=== PATIENT | female | born 1940 | race Caucasian/White ===

== ENCOUNTER 2017-12-30 21:02 | Outpatient (CLI) | payer MEDICARE, OTHER ==
[~2017-12-30 21:02] MED LIST: DIPH50CA PO; LORA10CA PO; LVT.025T PO
== END 2017-12-31 05:47 | disposition home or self-care (01) ==
LOC: SLEEP 21:02
PROVIDERS: ATTEND Otolaryngology Otolaryngology/Facial Plastic Surgery
DX: G47.33 Obstructive sleep apnea (adult) (pediatric) (principal); R06.83 Snoring; G47.10 Hypersomnia, unspecified
CPT/HCPCS: 95810

== ENCOUNTER 2019-06-29 19:25 | Outpatient (CLI) | payer MEDICARE, OTHER | END 2019-06-30 06:14 | disposition home or self-care (01) | LOC: SLEEP 19:25 | PROVIDERS: ATTEND Family Medicine | DX: G47.33 Obstructive sleep apnea (adult) (pediatric) (principal) | CPT/HCPCS: 95811 ==

== ENCOUNTER → 2019-12-06 | Outpatient (CLI) | payer MEDICARE ==
[~2019-12-06] VITALS: Ht 149.9 cm; Wt 81.8 kg
[~2019-12-06] MED LIST changes: +LIDOCAINE 1% INJ 20 ML 20 ML VIAL INJ ONE
--- NOTE | 2019-12-06 18:26 | Diagnostic Imaging Report ---
INDICATION: Enlarged left axillary lymph node. EXAM: The patient presents for ultrasound-guided biopsy. The patient was brought to the procedure room, placed on table in the supine position. Ultrasound imaging of the left axilla was performed to evaluate appropriate entry site. A total of 3 passes were made into a fairly fatty lesion in the left axilla utilizing 14-gauge Achieve needle. A marker clip was then deployed. Hemostasis was obtained using manual compression. The patient tolerated the procedure well left the department in stable condition. IMPRESSION: Ultrasound-guided core biopsy of a fatty left axillary lesion. Pathology results are currently pending. Dictated by: Dictated on workstation # [id number]
== END ==
LOC: RAD 13:26
PROVIDERS: ATTEND Family Medicine
DX: N63.32 Unspecified lump in axillary tail of the left breast (principal); Z90.10 Acquired absence of unspecified breast and nipple
CPT/HCPCS: 19083; 88305; 88341; 88342

== ENCOUNTER → 2020-02-08 | Outpatient (CLI) | payer MEDICARE ==
[~2020-02-08] MED LIST changes: -LIDOCAINE 1% INJ 20 ML 20 ML VIAL INJ ONE
--- NOTE | 2020-02-08 14:53 | Diagnostic Imaging Report ---
EXAM: PET/CT INDICATION: Breast cancer TECHNIQUE: PET/CT imaging was obtained from the base of the skull through the pelvis after the administration of 15.02 mCi of F-18 fluorodeoxyglucose injected into the right forearm. Limited CT imaging was utilized for localization and attenuation correction purposes. The low energy CT utilized for attenuation correction is not considered to be of high enough spatial resolution to allow in and of itself a separate anatomical analysis. Height 5' 0" Weight 175 Blood glucose 100 COMPARISON: There are no prior PET/CT examinations available for comparison. This study is less than optimal as a band of the mid abdomen is obscured by artifact. Reportedly, the patient could not hold her arms above her torso. Consequently, the accumulated radiotracer in the injection site at the right forearm did produce artifact that obscured the mid abdomen. Repeat images were obtained. The repeat images showed no hypermetabolic activity to suggest malignancy. The CT images were also unremarkable for a mass in this area. By history, the patient has a diagnosis of carcinoma of the left breast and she did undergo a mastectomy in 2012. The patient also underwent an ultrasound-guided biopsy of a lymph node in the left axilla on 12/06/2019. The results of the biopsy are not known to me. The patient also underwent an ultrasound exam of the left axilla on 01/28/2020. These lymph nodes appear to have increased in size since the prior exam of 11/30. On this exam, there does not appear to be any enlarged adenopathy in the left axilla and there is no hypermetabolic uptake in this area to suggest neoplastic disease. There is no hypermetabolic activity in the right axilla. The CT images do suggest that the patient has undergone a bilateral mastectomy. There is no focal hypermetabolic mass to suggest malignant disease. The thyroid gland is prominent and has increased hypermetabolic activity with SUV values ranging in the 5-6 range. This appearance is nonspecific however. Correlation with the patient's thyroid laboratory values would be recommended, particularly if there is clinical concern regarding Graves' disease. A thyroid ultrasound exam should also be considered for further study. The CT images failed to show any sign of an acute abnormality. There is a 2.8 cm dense nodule along the periphery of the right kidney. This is not hypermetabolic and is probably related to a cyst. Even so, I would recommend that ultrasound be performed for further study. There is diverticulosis of the sigmoid colon without evidence for acute diverticulitis. The uterus is surgically absent as is the gallbladder. IMPRESSION: 1. There is no hypermetabolic activity to suggest malignancy involving the left axilla. There is no focal hypermetabolic mass identified otherwise. 2. The generalized increased activity within the thyroid gland and the increased size of the thyroid gland is of uncertain etiology. This could be secondary to Graves' disease disease. Recommendations as above. 3. Ultrasound would be recommended to better characterize the 2.8 cm rounded soft tissue density along the lateral aspect of the right kidney. 4. These results were discussed with Dr. Escalera. Dictated by: Dictated on workstation # [id number]
== END ==
LOC: RAD 10:05
PROVIDERS: ATTEND Surgery
DX: C50.912 Malignant neoplasm of unspecified site of left female breast (principal); R59.0 Localized enlarged lymph nodes
CPT/HCPCS: 78815; A9552

== ENCOUNTER → 2021-06-29 | Outpatient (CLI) | payer MEDICARE, OTHER ==
--- NOTE | 2021-06-29 11:09 | Diagnostic Imaging Report ---
INDICATION: Dysphagia. TECHNIQUE: Procedure was performed in conjunction with Speech Pathology. Video fluoroscopy was performed during the swallowing of barium at multiple consistencies. 1.3 minutes of fluoroscopic time was utilized. FINDINGS: Patient ingested thin liquid with a teaspoon as well as through a straw. Patient also ingested applesauce and banana consistency. Patient ingested cracker consistency. There is a single episode of flash penetration during swallowing of thin barium with a teaspoon. The remainder of the swallows appeared normal. No other episodes of laryngeal penetration were observed. There is no aspiration. There is normal epiglottic tilt and laryngeal elevation. IMPRESSION: Essentially unremarkable modified barium swallow study apart from a single episode of flash penetration during swallowing of thin barium with a teaspoon. Dictated by: Dictated on workstation # [id number]
== END ==
LOC: RAD 10:00
DX: R13.10 Dysphagia, unspecified (principal)
CPT/HCPCS: 74230

== ENCOUNTER 2021-10-14 16:14 | Observation (INO) | payer MEDICARE, OTHER ==
[~2021-10-14] VITALS: Ht 152 cm; Wt 87.0 kg
--- NOTE | 2021-10-14 16:38 | ED Neurological Problem ---
General Chief Complaint: General Problems/Pain Stated Complaint: BP ISSUES Nursing Triage Note: PT TO ED [facility] W/ C/O LOW BLOOD PRESSURE THAT "SHOT UP" AND EPISODE OF "GLASSY EYES". DAUGHTER REPORTS PT WAS "UNRESPONSIVE" AT THAT TIME. PT STATES SHE DOESN'T REMEMBER ANY OF IT AND THINKS "THEY MADE IT UP." PT ANGRY AT THIS TIME ET DOES NOT WANT TO BE HERE AT THIS TIME. Source: patient, family, RN notes reviewed Exam Limitations: no limitations (WILLIAM HAYES) History of Present Illness Date Seen by Provider: Oct 14, 2021 Time Seen by Provider: 16:33 Initial Comments This is an 81-year-old female that presents to the emergency room from the [facility] for possible TIA. Per report the patient was talking and then had a moment of "going glassy eyed" and possibly having some right-sided facial droop. They sat the patient down and states that her blood pressure was "very low" and her pulse went into the 120s. This lasted for several minutes and seemingly resolved. The patient tells me that she does not believe that any of this happened and that she has a slight headache which she rates as a 7 out of 10. She does not have a history of CVA, PR or other cardiovascular events. She is not currently on a blood thinner. Severity: mild (WILLIAM HAYES) Allergies and Home Medications Allergies Coded Allergies: Cephalexin Monohydrate (Verified Allergy, Mild, 10/15/11) Methylene Blue (Verified Allergy, Mild, 10/15/11) Nitrofurantoin Macrocrystal (Verified Allergy, Mild, 10/15/11) Spectinomycin HCl (Verified Allergy, Mild, 10/15/11) amiloride HCl (Verified Allergy, Mild, 10/15/11) amoxicillin trihydrate (Verified Allergy, Mild, 10/15/11) ampicillin (Verified Allergy, Mild, 10/15/11) atropine (Verified Allergy, Mild, 10/15/11) atropine sulfate (Verified Allergy, Mild, 10/15/11) benzoic acid (Verified Allergy, Mild, 10/15/11) betamethasone dipropionate (Verified Allergy, Mild, 10/15/11) diazepam (Verified Allergy, Mild, 10/15/11) erythromycin base (Verified Allergy, Mild, 10/15/11) hydrochlorothiazide (Verified Allergy, Mild, 10/15/11) hyoscyamine (Verified Allergy, Mild, 10/15/11) hyoscyamine sulfate (Verified Allergy, Mild, 10/15/11) levofloxacin (Verified Allergy, Mild, 10/15/11) methenamine (Verified Allergy, Mild, 10/15/11) phenyl salicylate (Verified Allergy, Mild, 10/15/11) potassium clavulanate (Verified Allergy, Mild, 10/15/11) propylene glycol (Verified Allergy, Mild, 10/15/11) salicylates (Verified Allergy, Mild, 10/15/11) spectinomycin (Verified Allergy, Mild, 10/15/11) tetracycline (Verified Allergy, Mild, 10/15/11) caffeine (Unverified Allergy, Unknown, 04/26/10) Uncoded Allergies: CYCLSCAT VAG CREAM (Allergy, Mild, 10/15/11) FURAKIN (Allergy, Mild, 10/15/11) MYCSTATIX (Allergy, Mild, 10/15/11) ORTHO-DIENSATROL (Allergy, Mild, 10/15/11) PROBICIN (Allergy, Mild, 10/15/11) PTOSTSTAT (Allergy, Mild, 10/15/11) TETRAKIN (Allergy, Mild, 10/15/11) VELOSEX (Allergy, Mild, 10/15/11) CHOCOLATE (Allergy, Unknown, 04/26/10) INK (Allergy, Unknown, 04/26/10) PENICILLIN (Allergy, Unknown, 04/26/10) SULFA (Allergy, Unknown, 04/26/10) Patient Home Medication List Home Medication List Reviewed: Yes (WILLIAM HAYES) Diphenhydramine Hcl (Benadryl) 50 Mg Capsule, 1 EACH PO Q 4 - 6 HRS PRN, (Reported) Entered as Reported by: SALVATORE LEMA on 10/15/11 0746 Levothyroxine Sodium (Synthroid) 25 Mcg Tablet, 1 EACH PO DAILY, (Reported) Entered as Reported by: SALVATORE LEMA on 10/15/11 0746 Loratadine (Claritin) 10 Mg Capsule, 10 MG PO DAILY, (Reported) Entered as Reported by: SALVATORE LEMA on 10/15/11 0747 Review of Systems Review of Systems Constitutional: no symptoms reported Eyes: No Symptoms Reported Ears, Nose, Mouth, Throat: no symptoms reported Respiratory: no symptoms reported Cardiovascular: no symptoms reported Gastrointestinal: no symptoms reported Genitourinary: no symptoms reported Musculoskeletal: no symptoms reported Skin: no symptoms reported Psychiatric/Neurological: Headache Endocrine: No Symptoms Reported Hematologic/Lymphatic: No Symptoms Reported (WILLIAM HAYES) Past Dfascip-Xsbigu-Oprvkn Hx Patient Social History Tobacco Use?: No Use of E-Cig and/or Vaping dev: No Substance use?: No Alcohol Use?: No Pt feels they are or have been: No (WILLIAM HAYES) Physical Exam Vital Signs Vital Signs - First Documented 10/14/21 16:15 Temp 36.1 Pulse 67 Resp 20 B/P (MAP) 164/86 (112) Pulse Ox 98 O2 Delivery Room Air (FATOUMATA BARTON MD) Vital Signs Capillary Refill : Less Than 3 Seconds (WILLIAM HAYES) Height, Weight, BMI Height: 5'1.00" Weight: 190lbs. oz. 86.794510jv; 37.00 BMI Method:Stated General Appearance: WD/WN, no apparent distress HEENT: PERRL/EOMI, normal ENT inspection, TMs normal, pharynx normal Neck: non-tender, full range of motion, supple Respiratory: chest non-tender, lungs clear, normal breath sounds Gastrointestinal: normal bowel sounds, non tender Back: no CVA tenderness Extremities: non-tender Neurologic/Psychiatric: appointment specialist II-XII nml as tested, no motor/sensory deficits, alert, normal mood/affect Crainal Nerves: normal hearing, normal speech Coordination/Gait: normal finger to nose Motor/Sensory: no motor deficit, no sensory deficit, no pronator drift Skin: normal color, warm/dry (WILLIAM HAYES) Progress/Results/Core Measures Results/Orders Lab Results Laboratory Tests Test 10/14/21 16:48 10/14/21 17:04 Range/Units Urine Color YELLOW Urine Clarity CLEAR Urine pH 6.0 5-9 Urine Specific [place] 1.015 L 1.016-1.022 Urine Protein NEGATIVE NEGATIVE Urine Glucose (UA) NEGATIVE NEGATIVE Urine Ketones NEGATIVE NEGATIVE Urine Nitrite NEGATIVE NEGATIVE Urine Bilirubin NEGATIVE NEGATIVE Urine Urobilinogen 0.2 < = 1.0 MG/DL Urine Leukocyte Esterase 1+ H NEGATIVE Urine RBC (Auto) NEGATIVE NEGATIVE Urine RBC NONE /HPF Urine WBC 5-10 H /HPF Urine Squamous Epithelial Cells 0-2 /HPF Urine Renal Epithelial Cells NONE /HPF Urine Crystals NONE /LPF Urine Bacteria FEW H /HPF Urine Casts NONE /LPF Urine Mucus NEGATIVE /LPF Urine Culture Indicated NO White Blood Count 8.9 4.3-11.0 10^3/uL Red Blood Count 4.52 3.80-5.11 10^6/uL Hemoglobin 13.0 11.5-16.0 g/dL Hematocrit 40 35-52 % Mean Corpuscular Volume 88 80-99 fL Mean Corpuscular Hemoglobin 29 25-34 pg Mean Corpuscular Hemoglobin Concent 33 32-36 g/dL Red Cell Distribution Width 14.1 10.0-14.5 % Platelet Count 195 130-400 10^3/uL Mean Platelet Volume 10.4 9.0-12.2 fL Immature Granulocyte % (Auto) 0 % Neutrophils (%) (Auto) 60 42-75 % Lymphocytes (%) (Auto) 27 12-44 % Monocytes (%) (Auto) 8 0-12 % Eosinophils (%) (Auto) 4 0-10 % Basophils (%) (Auto) 1 0-10 % Neutrophils # (Auto) 5.4 1.8-7.8 10^3/uL Lymphocytes # (Auto) 2.4 1.0-4.0 10^3/uL Monocytes # (Auto) 0.7 0.0-1.0 10^3/uL Eosinophils # (Auto) 0.3 0.0-0.3 10^3/uL Basophils # (Auto) 0.1 0.0-0.1 10^3/uL Immature Granulocyte # (Auto) 0.0 0.0-0.1 10^3/uL Prothrombin Time 13.3 12.2-14.7 SEC INR Comment 1.0 0.8-1.4 Sodium Level 141 135-145 MMOL/L Potassium Level 3.8 3.6-5.0 MMOL/L Chloride Level 106 98-107 MMOL/L Carbon Dioxide Level 25 21-32 MMOL/L Anion Gap 10 5-14 MMOL/L Blood Urea Nitrogen 12 7-18 MG/DL Creatinine 1.52 H 0.60-1.30 MG/DL Estimat Glomerular Filtration Rate 34 BUN/Creatinine Ratio 8 Glucose Level 108 H 70-105 MG/DL Calcium Level 9.4 8.5-10.1 MG/DL Corrected Calcium 9.6 8.5-10.1 MG/DL Total Bilirubin 0.7 0.1-1.0 MG/DL Aspartate Amino Transf (AST/SGOT) 15 5-34 U/L Alanine Aminotransferase (ALT/SGPT) 11 0-55 U/L Alkaline Phosphatase 68 40-136 U/L Troponin I < 0.028 <0.028 NG/ML Total Protein 7.3 6.4-8.2 GM/DL Albumin 3.8 3.2-4.5 GM/DL (FATOUMATA BARTON MD) Vital Signs/I&O 10/14/21 16:15 Temp 36.1 Pulse 67 Resp 20 B/P (MAP) 164/86 (112) Pulse Ox 98 O2 Delivery Room Air (FATOUMATA BARTON MD) Blood Pressure Mean: 112 Departure Communication (Admissions) Time/Spoke to Admitting Phy: 18:07 Dr. Lee accepts patient at this time. Patient to be admitted for an acute TIA. Patient will be treated for a UTI as well. Dr. Lee graciously accepts patient at this time. (WILLIAM HAYES) Impression Primary Impression: TIA (transient ischemic attack) Additional Impression: UTI (urinary tract infection) Disposition: ADMITTED INPATIENT Condition: Stable Admissions Decision to Admit Reason: Admit from ER (General) Decision to Admit/Date: Oct 14, 2021 Time/Decision to Admit Time: 18:07 (WILLIAM HAYES) Departure-Patient Inst. Referrals: ARTIE GARCIA MD (PCP/Family) Primary Care Physician ATTENDING PHYSICIAN NOTE: I was physically present as attending physician in the emergency department during the care of this patient. I discussed the general approach to work-up and appropriateness of admission with ANNETTA Hanson. I did not directly provide care to this patient or interview or examine this patient.. (FATOUMATA BARTON MD) WILLIAM HAYES Oct 14, 2021 16:38 FATOUMATA BARTON MD Oct 14, 2021 19:40
--- NOTE | 2021-10-14 16:54 | Diagnostic Imaging Report ---
INDICATION: Labile blood pressure, neurologic changes. FINDINGS: Lungs are clear. Heart and vessels radiographically appear normal. No failure, effusion or pneumothorax. IMPRESSION: Normal frontal chest x-ray. Dictated by: Dictated on workstation # [id number]
[2021-10-14 16:55] LABS: BILIRUBIN,URINE NEGATIVE (NEGATIVE); CLARITY,URINE CLEAR; COLOR,URINE YELLOW; GLUCOSE, URINE (UA) NEGATIVE (NEGATIVE); KETONES,URINE NEGATIVE (NEGATIVE); LEUKOCYTE ESTERASE ,URINE 1+ (NEGATIVE); NITRITE,URINE NEGATIVE (NEGATIVE); PROTEIN,URINE NEGATIVE (NEGATIVE)
[2021-10-14 17:01] LABS: BACTERIA,URINE FEW /HPF; SQUAMOUS EPITHELIAL CELL,UR 0-2 /HPF
--- NOTE | 2021-10-14 17:10 | Diagnostic Imaging Report ---
PROCEDURE: CT head without contrast. TECHNIQUE: Multiple contiguous axial images were obtained through the brain without the use of intravenous contrast. Auto Exposure Controls were utilized during the CT exam to meet ALARA standards for radiation dose reduction. INDICATION: Labile blood pressure with altered mental status. COMPARISON: None. FINDINGS: There is no intracranial hemorrhage. There is no focal or generalized cerebral edema. The basilar cisterns patent. There is no sulcal effacement. There is no finding suggestive of an elevation of the intracranial pressures. There is no hemorrhage and there is no abnormal extra-axial fluid collection. There is membrane thickening in the right maxillary sinus. The mastoid air cells clear. No acute calvarial or orbital pathology found. IMPRESSION: Some right maxillary sinus disease, however, normal appearance of the brain. No acute appearing intracerebral pathology. Dictated by: Dictated on workstation # [id number]
[2021-10-14 17:11] LABS: BASOPHILS # (AUTO) 0.1 10^3/uL (0.0-0.1); BASOPHILS % (AUTO) 1 % (0-10); EOSINOPHILS # (AUTO) 0.3 10^3/uL (0.0-0.3); EOSINOPHILS % (AUTO) 4 % (0-10); HEMATOCRIT 40 % (35-52); LYMPHOCYTES # (AUTO) 2.4 10^3/uL (1.0-4.0); LYMPHOCYTES % (AUTO) 27 % (12-44); MEAN CORPUSCULAR HEMOGLOBIN 29 pg (25-34); MEAN CORPUSCULAR HGB CONC 33 g/dL (32-36); MEAN CORPUSCULAR VOLUME 88 fL (80-99); MEAN PLATELET VOLUME 10.4 fL (9.0-12.2); MONOCYTES # (AUTO) 0.7 10^3/uL (0.0-1.0); MONOCYTES % (AUTO) 8 % (0-12); NEUTROPHILS # (AUTO) 5.4 10^3/uL (1.8-7.8); NEUTROPHILS % (AUTO) 60 % (42-75); PLATELET COUNT 195 10^3/uL (130-400); WHITE BLOOD COUNT 8.9 10^3/uL (4.3-11.0)
[2021-10-14 17:28] LABS: ALBUMIN 3.8 GM/DL (3.2-4.5); PROTHROMBIN TIME PATIENT 13.3 SEC (12.2-14.7)
[2021-10-14 17:29] LABS: CHLORIDE 106 MMOL/L (98-107); POTASSIUM 3.8 MMOL/L (3.6-5.0); SODIUM 141 MMOL/L (135-145)
[2021-10-14 17:30] LABS: CALCIUM 9.4 MG/DL (8.5-10.1)
[2021-10-14 17:31] LABS: GLUCOSE 108 MG/DL (70-105); TOTAL PROTEIN 7.3 GM/DL (6.4-8.2)
[2021-10-14 17:32] LABS: CARBON DIOXIDE 25 MMOL/L (21-32)
[2021-10-14 17:33] LABS: BILIRUBIN,TOTAL 0.7 MG/DL (0.1-1.0)
[2021-10-14 17:34] LABS: ALKALINE PHOSPHATASE 68 U/L (40-136)
[2021-10-14 17:35] LABS: CREATININE SERUM 1.52 MG/DL (0.60-1.30); GFR ESTIMATED 34
[2021-10-14 17:36] LABS: BUN/CREATININE RATIO 8
[2021-10-14 17:37] LABS: ALANINE AMINOTRANSFERASE 11 U/L (0-55)
[2021-10-14 18:35] VITALS: BP 151/79
[2021-10-14] MEDS ORDERED: ONDANSETRON 4 MG (ZOFRAN) ORAL DISSOLVE TAB PO PRN (18:45)
[2021-10-14] MEDS ORDERED: MELATONIN 3 MG TABLET PO PRN (18:45)
[2021-10-14] MEDS ORDERED: ACETAMINOPHEN 325 MG TABLET PO PRN (18:45)
[2021-10-14] MEDS ORDERED: polyethylene glycoL POWDER 17 GM (MIRALAX) PACK PO PRN (18:45)
[2021-10-14] MEDS ORDERED: ONDANSETRON 4 MG/2 ML (SDV) Z0FRAN IV PRN (18:45)
[2021-10-14] MEDS ORDERED: ANTACID SUSP 30 ML UDC (MYLANTA) PO PRN (18:45)
[2021-10-14] MEDS ORDERED: NALOXONE 0.4 MG/ML 1 ML (NARCAN) VIAL IV PRN (19:00)
[2021-10-14 20:00] VITALS: BP 154/68
[2021-10-14] MEDS ORDERED: ENOXAPARIN 40 MG/0.4 ML (LOVENOX) SYR SC SCH (21:00)
[2021-10-15] VITALS (7 sets, daily range): BP systolic 122–192; BP diastolic 69–104
[2021-10-15] MEDS ORDERED: LEVOTHYROXINE 25 MCG (LEVOTHROID) TAB PO SCH (06:30)
[2021-10-15] MEDS ORDERED: PANTOPRAZOLE 40 MG (PROTONIX) TAB PO SCH (07:00)
[2021-10-15] MEDS ORDERED: hydrALAZINE (APESOLINE) 20 MG/ML VIAL IV PRN (08:15)
[2021-10-15] MEDS ORDERED: ASPIRIN 81 MG CHEW (CHILDREN'S ASA) PO SCH (09:00)
--- NOTE | 2021-10-15 10:11 | Diagnostic Imaging Report ---
PROCEDURE: US carotid duplex, bilateral. TECHNIQUE: Multiple real-time grayscale images were obtained over the carotid arteries in various projections, bilaterally. Additional spectral analysis and color Doppler duplex images were also obtained. INDICATION: Transient ischemic attacks. There is mild plaque of the right carotid bifurcation. No significant velocity elevation is identified. No velocity elevation or stenosis is seen. Both vertebral arteries show antegrade flow. IMPRESSION: No evidence of a hemodynamically significant stenosis. Parameters based on the consensus panel Knox-Scale and Doppler ultrasound criteria published February 2003, Radiology, Volume 229. DOPPLER (peak systolic velocity M/S Right Left CCA .62 .85 ICA Proximal .42 .46 ICA Mid .56 .83 ICA Distal .64 .45 RATIO 1.02 .98 ECA 1.02 .79 VERT .52 .43 Dictated by: Dictated on workstation # [id number]
--- NOTE | 2021-10-15 11:02 | Occupational Therapy Eval ---
OT Evaluation-General/PLF Medical Diagnosis Admission Date Oct 14, 2021 at 18:05 Medical Diagnosis: TIA/UTI Onset Date: Oct 14, 2021 Therapy Diagnosis Therapy Diagnosis: reduced safety, endurance, adls Height/Weight Height (Feet): 5 Height (Inches): 1.00 Weight (Pounds): 190 Precautions Precautions/Isolations: Fall Prevention Referral Referral Reason: Evaluation/Treatment Medical History Current History Pt arrived to ER from long term with c/o low blood pressure and unresponsive episode earlier in the day. Pt denies all events leading up to hospitalization. CT of head reveals no acute findings. Pt to have MRI. Per patient, she lives in a long term and is independent with adls. Staff complete all IADLs. Pt uses a 3 wheeled walker at baseline and walks to/from dining area. Reviewed History: Yes Social History Home: Custodial Entry Into Home: Level Entry ADL-Prior Level of Function SCALE: Activities may be completed with or without assistive devices. 4-Oedlbiipbl-npwvsrf completes the activity by him/herself with no assistance from a helper. 5-Set-up or Clean-up Assistance-helper sets up or cleans up; patient completes activity. [place] assists only prior to or following the activity. 4-Supervision or Touching Assistance-helper provides verbal cues and/or touching/steadying and/or contact guard assistance as patient completes activity. Assistance may be provided throughout the activity or intermittently. 3-Partial/Moderate Assistance-helper does LESS THAN HALF the effort. [place] lifts, holds or supports trunk or limbs, but provides less than half the effort. 2-Substantial/Maximal Assistance-helper does MORE THAN HALF the effort. [place] lifts or holds trunk or limbs and provides more than half the effort. 1-Tcergbanc-ifpmqw does ALL the effort. Patient does none of the effort to complete the activity. Or, the assistance of 2 or more helpers is required for the patient to complete the activity. If activity was not attempted, code reason: 7-Patient Refused. 9-Not Applicable-not attempted and the patient did not perform the activity before the current illness, exacerbation or injury. 10-Not Attempted due to Environmental Limitations-(lack of equipment, weather restraints, etc.). 88-Not Attempted due to Medical Conditions or Safety Concerns. Self Care: Independent Functional Cognition: Unknown OT Current Status Subjective "therapy, why would I need therapy? I don't need any therapy." Appearance Pt left room in wheelchair for MRI. Mental Status/Objective Patient Orientation: Person ADL-Treatment Toileting Hygiene (QC): 4 Supine>sit: min a to elevate torso. Sit<>stand: CGA. Upon standing, pt reports need to have BM. She ambulated to/from bathroom with hand held assist. Vee care completed in sitting with supervision, She was able to stand and manage clothing over her hips with steading assist. She verbalizes feelings of lightheadedness after minimal activity, recovers with seated rest break in w/c. Pt left room with staff for MRI. Education OT Patient Education: Correct positioning, Purpose of tx/functional activities, Safety issues, Transfer techniques Teaching Recipient: Patient Teaching Methods: Discussion Response to Teaching: Verbalize Understanding, Return Demonstration, Reinforcement Needed OT Usp Goals Pole Framer Goals Time Frame: Oct 25, 2021 Oral Hygiene (QC): 5 Toileting Hygiene (QC): 6 Shower/Bathe Self (QC): 4 Upper Body Dressing (QC): 5 Lower Body Dressing (QC): 5 On/Off Footwear (QC): 4 1=Demonstrate adherence to instructed precautions during ADL tasks. 2=Patient will verbalize/demonstrate understanding of assistive de vices/modifications for ADL. 3=Patient will improve strength/tolerance for activity to enable patient to perform ADL's. OT Education/Plan Problem List/Assessment Assessment: Decreased Activ Tolerance, Decreased Safety Aware, Impaired Bed Mobility, Impaired Cognition, Impaired Funct Balance, Impaired Self-Care Skills Discharge Recommendations Plan/Recommendations: Continue POC Comment anticipate return to long term once medically stable. Treatment Plan/Plan of Care Treatment,Training & Education: Yes Patient would benefit from OT for education, treatment and training to promote independence in ADL's, mobility, safety and/or upper extremity function for ADL's. Plan of Care: ADL Retraining, Cognitive Retraining, Functional Mobility, Group Exercise/Act as Ind, UE Funct Exercise/Act Treatment Duration: Oct 25, 2021 Frequency: 3 times per week (3-5x/week) Estimated Hrs Per Day: .25 hour per day Rehab Potential: Guarded Time/GCodes Start Time: 10:26 Stop Time: 10:38 Total Time Billed (hr/min): 12 Billed Treatment Time 1 visit Mariana Moore OT Oct 15, 2021 11:02
[2021-10-15] MEDS ORDERED: LEVO25CA4 PO (11:12)
[2021-10-15] MEDS ORDERED: SIME125C PO (11:13)
[2021-10-15] MEDS ORDERED: RT-ALBUINH IH (11:14)
[2021-10-15] MEDS ORDERED: HYDR28.487 RC (11:15)
[2021-10-15] MEDS ORDERED: DIPH25TA65 PO (11:16)
[2021-10-15] MEDS ORDERED: LORA-404 PO (11:17)
[2021-10-15] MEDS ORDERED: IBUP-2473 PO (11:17)
[2021-10-15] MEDS ORDERED: MENT71OI TP (11:19)
[2021-10-15] MEDS ORDERED: NYST15CR TP (11:20)
[2021-10-15] MEDS ORDERED: OMEP40CA6 PO (11:21)
--- NOTE | 2021-10-15 11:31 | Diagnostic Imaging Report ---
PROCEDURE: MR imaging of the brain without contrast. TECHNIQUE: Multiplanar, multisequence MR imaging of the brain was performed without contrast. INDICATION: TIA. FINDINGS: There is prominence of ventricles and sulci. There is some chronic microvascular ischemic disease. There is no hydrocephalus. No midline shift. There is no mass, hemorrhage or extra-axial fluid collection. There is a focal area of diffusion restriction in the superior aspect of the right occipital lobe compatible with acute CVA. There is some right maxillary sinus disease. The remaining sinuses and mastoid air cells are clear. IMPRESSION: Focal area of diffusion restriction in the superior aspect of the right occipital lobe compatible with acute CVA. Atrophy and some chronic microvascular ischemic disease. Dictated by: Dictated on workstation # [id number]
[2021-10-15] MEDS ORDERED: ASPI81TA64 PO (11:36)
--- NOTE | 2021-10-15 11:40 | Short Stay Summary-Hospitalist ---
History of Present Illness HPI/Chief Complaint Patient is an 81-year-old female with past medical history of hypothyroidism and hypertension who presented to the emergency department due to episode of altered mentation. She denies any of this history and states she felt well all day yesterday. Apparently her nursing facility staff she had an episode where she got glassy eyed and did not respond. They thought she had a facial droop. They checked her vitals and her blood pressure was "low." She was also quite tachycardic. They decided to seek evaluation in the emergency department. CT of her head was negative for acute infarct but she was admitted for concern for TIA. She reports that her symptoms are completely resolved now. She has worked with physical therapy and Occupational Therapy. She is hopeful to discharge home quickly. Source: patient Date Seen 10/15/21 Time Seen by a Provider: 11:40 Attending Physician Daisy Galvan MD PCP Admitting Physician: Sravani Gaines MD Attending Physician: Sravani Gaines MD Referring Physician Date of Admission Oct 14, 2021 at 18:05 Home Medications & Allergies Home Medications Reviewed patient Home Medication Reconciliation performed by pharmacy medication reconciliations mechanical assembly technician and/or nursing. Patients Allergies have been reviewed. Allergies Allergies Coded Allergies Cephalexin Monohydrate (Verified Allergy, Mild, 10/15/11) Methylene Blue (Verified Allergy, Mild, 10/15/11) Nitrofurantoin Macrocrystal (Verified Allergy, Mild, 10/15/11) Spectinomycin HCl (Verified Allergy, Mild, 10/15/11) amiloride HCl (Verified Allergy, Mild, 10/15/11) amoxicillin trihydrate (Verified Allergy, Mild, 10/15/11) ampicillin (Verified Allergy, Mild, 10/15/11) atropine (Verified Allergy, Mild, 10/15/11) atropine sulfate (Verified Allergy, Mild, 10/15/11) benzoic acid (Verified Allergy, Mild, 10/15/11) betamethasone dipropionate (Verified Allergy, Mild, 10/15/11) diazepam (Verified Allergy, Mild, 10/15/11) erythromycin base (Verified Allergy, Mild, 10/15/11) hydrochlorothiazide (Verified Allergy, Mild, 10/15/11) hyoscyamine (Verified Allergy, Mild, 10/15/11) hyoscyamine sulfate (Verified Allergy, Mild, 10/15/11) levofloxacin (Verified Allergy, Mild, 10/15/11) methenamine (Verified Allergy, Mild, 10/15/11) phenyl salicylate (Verified Allergy, Mild, 10/15/11) potassium clavulanate (Verified Allergy, Mild, 10/15/11) propylene glycol (Verified Allergy, Mild, 10/15/11) salicylates (Verified Allergy, Mild, 10/15/11) spectinomycin (Verified Allergy, Mild, 10/15/11) tetracycline (Verified Allergy, Mild, 10/15/11) caffeine (Unverified Allergy, Unknown, 04/26/10) Uncoded Allergies CYCLSCAT VAG CREAM ( Allergy, Mild, 10/15/11) FURAKIN ( Allergy, Mild, 10/15/11) MYCSTATIX ( Allergy, Mild, 10/15/11) ORTHO-DIENSATROL ( Allergy, Mild, 10/15/11) PROBICIN ( Allergy, Mild, 10/15/11) PTOSTSTAT ( Allergy, Mild, 10/15/11) TETRAKIN ( Allergy, Mild, 10/15/11) VELOSEX ( Allergy, Mild, 10/15/11) CHOCOLATE ( Allergy, Unknown, 04/26/10) INK ( Allergy, Unknown, 04/26/10) PENICILLIN ( Allergy, Unknown, 04/26/10) SULFA ( Allergy, Unknown, 04/26/10) Past Ylvsjhk-Wdjrdg-Emijew Hx Patient Social History Employed/Student: retired Tobacco Use?: No Smoking Status: Never a Smoker Use of E-Cig and/or Vaping dev: No Substance use?: No Alcohol Use?: No Pt feels they are or have been: No Current Status Advance Directives: No Communicates: Verbally Primary Language: Martiniquais Preferred Spoken Language: Martiniquais Is interpretation needed?: No Implanted or Applied Medical D: CPAP Past Medical History Sleep Apnea Hypothyroidsim Anxiety Family Medical History Reviewed Nursing Family Hx Review of Systems Constitutional: No chills, No fever EENTM: see HPI Respiratory: no symptoms reported Cardiovascular: No chest pain, No edema, No palpitations Genitourinary: no symptoms reported Musculoskeletal: no symptoms reported Skin: no symptoms reported Psychiatric/Neurological: See HPI Physical Exam Physical Exam Vital Signs Vital Signs - First Documented 10/14/21 16:15 Temp 36.1 Pulse 67 Resp 20 B/P (MAP) 164/86 (112) Pulse Ox 98 O2 Delivery Room Air Capillary Refill : Less Than 3 Seconds Height, Weight, BMI Height: 5'1.00" Weight: 190lbs. oz. 86.029051px; 37.65 BMI Method:Stated General Appearance: No Apparent Distress, WD/WN, Obese HEENT: PERRL/EOMI, Moist Mucous Membranes Neck: Normal Inspection, Supple Respiratory: Lungs Clear, No Accessory Muscle Use, No Respiratory Distress Cardiovascular: Regular Rate, Rhythm, No JVD, No Murmur Gastrointestinal: Normal Bowel Sounds, Non Tender, Soft Extremity: Normal Capillary Refill, No Calf Tenderness, No Pedal Edema Neurologic/Psychiatric: Alert, Oriented x3, Normal Mood/Affect Skin: Normal Color, Warm/Dry Results Results/Procedures Labs Laboratory Tests 10/14/21 17:04 Patient resulted labs reviewed. Imaging: Reviewed Imaging Report Imaging [facility] [place] NAME: RAVIN BUENROSTRO [facility] REC#: [id number] PT STATUS: ADM Diogo : 1940 PHYSICIAN: WILLIAM HAYES ADMIT DATE: 10/14/21 Signed Date of Exam:10/14/21 CT HEAD WO PROCEDURE: CT head without contrast. TECHNIQUE: Multiple contiguous axial images were obtained through the brain without the use of intravenous contrast. Auto Exposure Controls were utilized during the CT exam to meet ALARA standards for radiation dose reduction. INDICATION: Labile blood pressure with altered mental status. COMPARISON: None. FINDINGS: There is no intracranial hemorrhage. There is no focal or generalized cerebral edema. The basilar cisterns patent. There is no sulcal effacement. There is no finding suggestive of an elevation of the intracranial pressures. There is no hemorrhage and there is no abnormal extra-axial fluid collection. There is membrane thickening in the right maxillary sinus. The mastoid air cells clear. No acute calvarial or orbital pathology found. IMPRESSION: Some right maxillary sinus disease, however, normal appearance of the brain. No acute appearing intracerebral pathology. Dictated by: Dictated on workstation # [id number] Dict: 10/14/21 1654 Trans: 10/15/21 1141 [facility] [id number] Interpreted by: JUAN RAMON GROVES Electronically signed by: JUAN RAMON GROVES 10/15/21 1141 [facility] [place] NAME: RAVIN BUENROSTRO [facility] REC#: [id number] PT STATUS: ADM Diogo : 1940 PHYSICIAN: SRAVANI GAINES MD ADMIT DATE: 10/14/21 Signed Date of Exam:10/15/21 MRI BRAIN W/O CONTRAST PROCEDURE: MR imaging of the brain without contrast. TECHNIQUE: Multiplanar, multisequence MR imaging of the brain was performed without contrast. INDICATION: TIA. FINDINGS: There is prominence of ventricles and sulci. There is some chronic microvascular ischemic disease. There is no hydrocephalus. No midline shift. There is no mass, hemorrhage or extra-axial fluid collection. There is a focal area of diffusion restriction in the superior aspect of the right occipital lobe compatible with acute CVA. There is some right maxillary sinus disease. The remaining sinuses and mastoid air cells are clear. IMPRESSION: Focal area of diffusion restriction in the superior aspect of the right occipital lobe compatible with acute CVA. Atrophy and some chronic microvascular ischemic disease. Dictated by: Dictated on workstation # [id number] Dict: 10/15/21 1122 Trans: 10/15/21 1133 [facility] [id number] Interpreted by: REY BERNAL MD Electronically signed by: REY BERNAL MD 10/15/21 1133 Short Stay Diagnosis Discharge Diagnosis-Short Stay Admission Diagnosis Acute CVA Final Discharge Diagnosis Acute CVA Conclusion Plan Acute CVA MRI confirmed CVA Seen by PT/OT- at baseline Stable over 24 hours DC home Recommended statin- she declines and will talk with her PCP about this I called and updated Dr Galvan, her PCP, regarding hospital stay Asymptomatic bacteruria No indication for treatment Diagnosis/Problems Diagnosis/Problems (1) CVA (cerebral vascular accident) Qualifiers: Qualified Codes: I63.9 - Cerebral infarction, unspecified USAMA GILBERT MD Oct 15, 2021 11:40
[2021-10-15] MEDS ORDERED: IBUPROFEN 600 MG (MOTRIN) TAB PO PRN (11:45)
[2021-10-15] MEDS ORDERED: SALINE NASAL SPRAY (OCEAN) 45 ML BTL PRN (11:45)
[2021-10-15] MEDS ORDERED: IBUPROFEN TABLET 200 MG TAB PO PRN (11:45)
--- NOTE | 2021-10-15 11:49 | Physical Therapy Evaluation ---
PT Evaluation-General Medical Diagnosis Admission Date Oct 14, 2021 at 18:05 Medical Diagnosis: TIA/UTI Onset Date: Oct 14, 2021 Therapy Diagnosis Therapy Diagnosis: Gait deficit s/p CVA Height/Weight Height (Feet): 5 Height (Inches): 1.00 Weight (Pounds): 190 Precautions Precautions/Isolations: Fall Prevention Weight Bear Status Right Lower Extremity: Right Full Weight Bearing Left Lower Extremity: Left Full Weight Bearing Referral Physician: Dr. Wooten Reason for Referral: Evaluation/Treatment Medical History Reviewed History: Yes Social History Home: [facility] Entry Into Home: Level Entry Prior Prior Level of Function SCALE: Activities may be completed with or without assistive devices. 2-Vvjhfnyxjw-elvfffy completes the activity by him/herself with no assistance from a helper. 5-Set-up or Clean-up Assistance-helper sets up or cleans up; patient completes activity. [place] assists only prior to or following the activity. 4-Supervision or Touching Assistance-helper provides verbal cues and/or touching/steadying and/or contact guard assistance as patient completes activity. Assistance may be provided throughout the activity or intermittently. 3-Partial/Moderate Assistance-helper does LESS THAN HALF the effort. [place] lifts, holds or supports trunk or limbs, but provides less than half the effort. 2-Substantial/Maximal Assistance-helper does MORE THAN HALF the effort. [place] lifts or holds trunk or limbs and provides more than half the effort. 6-Jxyuwsafr-rjmdxz does ALL the effort. Patient does none of the effort to complete the activity. Or, the assistance of 2 or more helpers is required for the patient to complete the activity. If activity was not attempted, code reason: 7-Patient Refused. 9-Not Applicable-not attempted and the patient did not perform the activity befo re the current illness, exacerbation or injury. 10-Not Attempted due to Environmental Limitations-(lack of equipment, weather re straints, etc.). 88-Not Attempted due to Medical Conditions or Safety Concerns. Bed Mobility: 6 Transfers (B,C,W/C): 6 Gait: 6 Indoor Mobility (Ambulation): Independent Stairs: Independent Prior Devices Use: Walker PT Evaluation-Current Subjective Patient sitting in chair with Dr. Wooten assessing upon PT arrival, both agreeable to PT evaluation. Patient reports LI at 09/28. Objective Patient Orientation: Person, Place, Time, Situation ROM/Strength ROM Lower Extremities WFLs all planes bilaterally Strength Lower Extremities 4/5 grossly each LE Sensory Vision: Wears Glasses Hearing: Functional Sensation Right Lower Extremit: Intact Sensation Left Lower Extremity: Intact Transfers Sit to Stand (QC): 4 Chair/Pvr-dw-Yupnu Xfer(QC): 4 Gait Does the Patient Walk?: Yes Mode of Locomotion: Walk Anticipated Mode of Locomotion: Walk Walk 10 feet (QC): 4 Walk 50 ft with 2 Turns(QC): 4 Walk 150 ft (QC): 4 Distance: 150 Gait Assistive Device: Walker 3 Wheeled Balance Sitting Static: Normal Sitting Dynamic: Good Standing Static: Good Standing Dynamic: Good Assessment/Needs Patient tolerated treatment well. Demonstrates SBA for all observed transfers. Dr. Wooten reports MRI looks good and patient may D/C today. Patient agreeable to this and reports "I'm ready, although that place I'm at isn't great." Patient ambulates 150 feet with 3WW, with SBA and verbal cues for safety,progression, balance and tolerance to activity. Patient ambulates with short stride length and tends to rotate pelvis while ambulating to advance LEs, however patient reports this is baseline for her. Patient in chair post treatment with all needs met, nursing notified, call light in reach. No further PT needed at this time. Rehab Potential: Good Equipment Needs None at this time. PT Plan Treatment/Plan Treatment Plan: Discontinue PT Treatment Duration: Oct 15, 2021 Frequency: Safety Risks/Education Patient Education: Gait Training, Transfer Techniques Teaching Recipient: Patient Teaching Methods: Demonstration, Discussion Response to Teaching: Verbalize Understanding, Return Demonstration Discharge Recommendations Target Placement Return to [facility]. Time/GCodes Time In: 1126 Time Out: 1142 Total Billed Treatment Time: 16 Total Billed Treatment Visit, ALAN PANIAGUA PT Oct 15, 2021 11:48
--- NOTE | 2021-10-15 12:37 | Discharge Inst-Simple/Standard ---
Discharge Inst-Standard Discharge Medications New, Converted or Re-Newed RX: Transmitted to Pharmacy Patient Instructions/Follow Up Plan of Care/Instructions/FU: Please continue take your medications as written. Please follow-up with your primary care doctor to follow-up this hospital stay. Activity as Tolerated: Yes Discharge Diet: Cardiac Diet Return to The Hospital For: Chest pain, facial droop, difficulty speaking or slurred speech, shortness of breath, fever, weakness, if you feel you are getting worse. USAMA GILBERT MD Oct 15, 2021 12:37
--- NOTE | 2021-10-15 13:23 | ST Dysphagia Evaluation ---
Speech Evaluation-General Medical Diagnosis TIA/UTI Onset Date: Oct 14, 2021 Therapy Diagnosis Therapy Diagnosis: Oropharyngeal Dysphagia Precautions Precautions: Aspiration Precautions/Isolations: Aspiration, Standard Precautions Referral Referring Physician: Dr. Wooten Reason for Referral: Evaluation/Treatment Medical History Current History The patient is an 81 year-old female that presents to the emergency room from the [facility] for possible TIA. Per report the patient was talking and then had a moment of "going glassy eyed" and possibly having some right-sided facial droop. They sat the patient down and states that her blood pressure was "very low" and her pulse went into the 120s. This lasted for several minutes and seemingly resolved. Reviewed History: Yes Speech PLF/Current-Dysphagia Prior Level of Function Prior to admission, the patient reported concerns regarding her swallowing function. Following a chart review, the patient completed a modified barium swallow at this facility on 06/29/2021 with similar complaints prior to completion. At the time of the swallow study, the patient was recommended a regular consistency diet with thin liquids and specific strategies to aid in pharyngeal comfort and clearance. Additionally, no laryngeal penetration or aspiration was visualized. Currently, the patient continues to report a globus sensation which she localizes to the laryngeal region. The patient stated she coughs and clears her throat due to the drainage and believes the globus sensation is due to the reported drainage. Subjective The patient was seated upright in a chair at bedside, awake and alert upon entrance to her room by the clinician. The patient greeted the clinician and was agreeable to participation in the clinical bedside swallowing evaluation. The patient displays a consistent cough and throat clear prior to the presentation of PO consistencies. Cognitive Status Patient Orientation: Person, Place, Situation Oral Motor Skills Dentition: Edentalous Denture Type: Full- Upper & Lower Current Food Consistancy: Regular, Pureed, Thin Liquids Oral Expression Ability: Mild Impairment Voice Voice Phonatory-Based Quality: Harsh Voice Pitch: Normal Voice Loudness: Normal Face Facial Symmetry: Symmetrical Oral-Facial Assessment Oral-Facial Dentition: Normal Labial Seal Description: Normal Smile: Normal Puff Cheeks: Normal Lingual Protrusion: Normal Lingual ROM: Normal Lingual Strength: Normal Pharynx Velopharyngeal Move.: Normal Volitional Dry Swallow: Yes Voluntary Cough: Yes Can Clear Throat Volitionally: Yes Productive Cough: Yes Productive Throat Clear: Yes Dysphagia Evaluation Consistencies Presented: Regular, Thin Liquid, Pureed Oral Phase: Unable to Form Bolus (Difficulty forming a solid bolus.), Reduced Oral Transit The patient was able to appropriately accept bolus material from a teaspoon and straw. Anterior spillage was not present. Prolonged mastication was present with solid consistencies, with the necessity of a thin liquid to initiate posterior transfer. Laryngeal elevation was present to palpation. The patient appears to trigger a timely pharyngeal swallow response. The patient continues baseline cough and throat clear throughout the evaluation, without increased frequency or intensity. The patient continues to report the cough is secondary to drainage. The patient's vocal quality is clear immediately following each swallow. Overt s/s of suspected aspiration were not displayed with thin liquids, puree or solid consistencies. Dietary Recommendations: Regular Liquid Recommendations: Thin Recommendations: - Regular consistency diet with thin liquids, as tolerated. - Fully upright and alert for PO intake. - Small, single bites and sips. - Alternate bites and sips on a 1:1 ratio. - Provide additional sauces and gravies to aid in pharyngeal comfort and clearance. - Crush medication and place in puree for administration. - Monitor for s/s of suspected aspiration with PO intake. If demonstrated, contact speech pathology. - Consider repetition of the modified barium swallow evaluation or a barium swallow if the globus sensation does not improve or worsens. The results and recommendations were discussed with the patient extensively following the evaluation. Additionally, the recommendations were provided to the RN. The patient's questions were answered within the clinician's scope of practice. Dysphagia Evaluation Summary The patient demonstrated oropharyngeal dysphagia characterized by prolonged mastication of solid consistencies, poor bolus formation of solid consistencies, and decreased airway protection in the presence of bolus consistencies. Speech-Plan Treatment Plan Speech Therapy Treatment Plan: Discontinue ST Frequency: 1 time per week Estimated Hrs Per Day: .25 hour per day Rehab Potential: Good Pt/Family Agrees to Plan: Yes Safety Risks/Education Teaching Recipient: Patient Teaching Methods: Discussion Response to Teaching: Verbalize Understanding Education Topics Provided: Results, Recommendations, Plan of Care Time Speech Therapy Time In: 11:45 Speech Therapy Time Out: 12:05 Total Billed Time: 20 Billed Treatment Time 1, ADAN RICE [facility] Oct 15, 2021 13:23
== END 2021-10-15 15:55 ==
LOC: EDUNIT# 16:14 → ER 16:15 → 4TH 18:05
PROVIDERS: ADMIT Internal Medicine; ATTEND Internal Medicine
DX: I63.9 Cerebral infarction, unspecified (principal); N39.0 Urinary tract infection, site not specified
CPT/HCPCS: 36415; 70450; 70551; 71045; 80053; 81000; 84484; 85025; 85610; 93005; 93306; 93880; 96375; G0378

== ENCOUNTER 2022-02-23 12:07 | Emergency (ER) | payer MEDICARE, OTHER ==
[~2022-02-23] VITALS: Ht 152 cm; Wt 81.6 kg
[~2022-02-23 12:07] MED LIST changes: +ALBU8.5H6 IH; +ASPI81TA64 PO; +DIPH25TA65 PO; +HYDR28.487 RC; +IBUP-2473 PO; +LEVO25CA4 PO; +LORA-404 PO; +MENT71OI TP; +NYST15CR35 TP; +OMEP40CA6 PO; +SIME125C PO
--- NOTE | 2022-02-23 12:37 | ED General ---
General Chief Complaint: General Problems/Pain Stated Complaint: SHAKEY/TOES NUMB/RIGHT SIDE HEAD PAIN/WEAKNESS Nursing Triage Note: PT TO RM 5 BY WC WITH C/O FEELING A WHOLE BODY JERK WHILE AT A GARAGE SALE THIS MORNING. PT STATES SHE LAID DOWN ON THE COUCH AND THEN CAME HERE. PT STATES SHE HAS FELT THE JERKING SENSATION A FEW TIMES AFTER THE INTITAL ALSO Source of Information: Patient, Family Exam Limitations: No Limitations History of Present Illness Date Seen by Provider: Feb 23, 2022 Time Seen by Provider: 12:30 Initial Comments Patient is a 81-year-old female brought to the emergency room from a local intermediate chief complaint of concern for some "jerking" head movements, incontinence of urine and very brief episode of numbness to her right toes. Patient got up to go to her daughter's house for a garage sale. She got very fatigued. Her daughter brought her back to the intermediate where she laid on the couch and then noted she was incontinent of urine. She denies any back pain or leg numbness or weakness. No chest pain or shortness of breath. No abd ominal pain, nausea or vomiting. She has had no complaints of illness. When she got up to walk she noticed that her toes were "numb" but this lasted only seconds. She also seem to be jerking when the nurse at the intermediate assessed her. Daughter described this as only head movements. She does have a history of anxiety and depression. The patient is completely asymptomatic at this time. She denies recent burning with urination, increased urinary frequency or urgency. No recent blood in her urine that she has noticed, No other complaints at this time. SHe does seem somewhat irritated and impatient with questioning on HPI and exam, No acute distress on arrival. Timing/Duration: 1-3 Hours Severity: Mild Associated Systoms: Denies Symptoms Allergies and Home Medications Allergies Coded Allergies: Cephalexin Monohydrate (Verified Allergy, Mild, 10/15/11) Methylene Blue (Verified Allergy, Mild, 10/15/11) Nitrofurantoin Macrocrystal (Verified Allergy, Mild, 10/15/11) Spectinomycin HCl (Verified Allergy, Mild, 10/15/11) amiloride HCl (Verified Allergy, Mild, 10/15/11) amoxicillin trihydrate (Verified Allergy, Mild, 10/15/11) ampicillin (Verified Allergy, Mild, 10/15/11) atropine (Verified Allergy, Mild, 10/15/11) atropine sulfate (Verified Allergy, Mild, 10/15/11) benzoic acid (Verified Allergy, Mild, 10/15/11) betamethasone dipropionate (Verified Allergy, Mild, 10/15/11) diazepam (Verified Allergy, Mild, 10/15/11) erythromycin base (Verified Allergy, Mild, 10/15/11) hydrochlorothiazide (Verified Allergy, Mild, 10/15/11) hyoscyamine (Verified Allergy, Mild, 10/15/11) hyoscyamine sulfate (Verified Allergy, Mild, 10/15/11) levofloxacin (Verified Allergy, Mild, 10/15/11) methenamine (Verified Allergy, Mild, 10/15/11) phenyl salicylate (Verified Allergy, Mild, 10/15/11) potassium clavulanate (Verified Allergy, Mild, 10/15/11) propylene glycol (Verified Allergy, Mild, 10/15/11) salicylates (Verified Allergy, Mild, 10/15/11) spectinomycin (Verified Allergy, Mild, 10/15/11) tetracycline (Verified Allergy, Mild, 10/15/11) caffeine (Unverified Allergy, Unknown, 04/26/10) Uncoded Allergies: CYCLSCAT VAG CREAM (Allergy, Mild, 10/15/11) FURAKIN (Allergy, Mild, 10/15/11) MYCSTATIX (Allergy, Mild, 10/15/11) ORTHO-DIENSATROL (Allergy, Mild, 10/15/11) PROBICIN (Allergy, Mild, 10/15/11) PTOSTSTAT (Allergy, Mild, 10/15/11) TETRAKIN (Allergy, Mild, 10/15/11) VELOSEX (Allergy, Mild, 10/15/11) CHOCOLATE (Allergy, Unknown, 04/26/10) INK (Allergy, Unknown, 04/26/10) PENICILLIN (Allergy, Unknown, 04/26/10) SULFA (Allergy, Unknown, 04/26/10) Patient Home Medication List Home Medication List Reviewed: Yes Albuterol Sulfate (Ventolin Hfa) 1 Puff Puff, 2 PUFF IH Q8H PRN for SHORTNESS OF BREATH, (Reported) Entered as Reported by: JON chen 10/15/21 1114 Aspirin (Children's Aspirin) 81 Mg Tab.chew, 81 MG PO DAILY Prescribed by: USAMA GILBERT on 10/15/21 1136 Diphenhydramine HCl (Benadryl Allergy) 25 Mg Tablet, 12.5 MG PO Q8H PRN for ALLERGIES, (Reported) Entered as Reported by: JON WELSH on 10/15/21 1116 Hydrocortisone (Hydrocortisone) 1 % Cream..g., 1 APPLIC RC Q12H PRN for HEMMORRHOID DISCOMFORT, (Reported) Entered as Reported by: JON WELSH on 10/15/21 1115 Ibuprofen (Ibuprofen) 200 Mg Tablet, 200 MG PO Q8H PRN for PAIN-MILD (1-4), (Reported) Entered as Reported by: JON WELSH on 10/15/21 111 Levothyroxine Sodium (Levothyroxine) 25 Mcg Capsule, 25 MCG PO DAILY, (Reported) Entered as Reported by: JON WELSH on 10/15/21 111 Lorazepam (Ativan) 0.5 Mg Tablet, 0.5 MG PO Q12H PRN for ANXIETY, (Reported) Entered as Reported by: JON WELSH on 10/15/21 111 Menthol/Lanolin/Calamine/Znox (Calmoseptine Ointment) 0.44 %-20.6 % Oint, 1 APPLIC TP DAILY PRN for GAULDING, (Reported) Entered as Reported by: JON WELSH on 10/15/21 111 Nystatin (Nystatin) 100,000 Unit/Gram Cream..g., 1 APPLIC TP BID PRN for RASH, (Reported) Entered as Reported by: JON WELSH on 10/15/21 112 Omeprazole (Omeprazole) 40 Mg Capsule.dr, 40 MG PO DAILY, (Reported) Entered as Reported by: JON WELSH on 10/15/21 112 Simethicone (Gas-X) 125 Mg Capsule, 125 MG PO Q6H PRN for GAS, (Reported) Entered as Reported by: JON WELSH on 10/15/21 111 Review of Systems Review of Systems Constitutional: see HPI EENTM: no symptoms reported Cardiovascular: no symptoms reported Gastrointestinal: no symptoms reported Genitourinary: frequency, other (urinary incontinece) Musculoskeletal: no symptoms reported Skin: no symptoms reported Psychiatric/Neurological: No Symptoms Reported All Other Systems Reviewed Negative Unless Noted: Yes Past Rwvksow-Nvcqfj-Beeaus Hx Patient Social History Tobacco Use?: No Substance use?: No Alcohol Use?: No Pt feels they are or have been: No Past Medical History Surgery/Hospitalization HX: PMH; SURGERY; Sleep Apnea Hypothyroidsim Anxiety Physical Exam Vital Signs Vital Signs - First Documented 02/23/22 02/23/22 12:14 13:30 Temp 36.2 Pulse 74 Resp 16 B/P (MAP) 143/84 (103) Pulse Ox 98 O2 Delivery Room Air Capillary Refill : Height, Weight, BMI Height: 5'1.00" Weight: 190lbs. oz. 86.083445se; 35.00 BMI Method:Stated General Appearance: No Apparent Distress, WD/WN Eyes: Bilateral Eye Normal Inspection, Bilateral Eye PERRL, Bilateral Eye EOMI HEENT: PERRL/EOMI Neck: Normal Inspection Respiratory: Lungs Clear, Normal Breath Sounds, No Accessory Muscle Use, No Respiratory Distress Cardiovascular: Regular Rate, Rhythm, Normal Peripheral Pulses Gastrointestinal: Non Tender, Soft Extremity: Normal Inspection, Normal Range of Motion, Non Tender, No Calf Tenderness Neurologic/Psychiatric: Alert, Oriented x3, No Motor/Sensory Deficits, Normal Mood/Affect, alarm installation technician II-XII Norm as Tested Skin: Normal Color, Warm/Dry Progress/Results/Core Measures Suspected Sepsis SIRS Temperature: Pulse: 74 Respiratory Rate: 16 Blood Pressure 143 /84 Mean: 103 Results/Orders Lab Results Laboratory Tests Test 02/23/22 12:20 02/23/22 12:42 Range/Units Urine Color YELLOW Urine Clarity CLEAR Urine pH 6.0 5-9 Urine Specific [place] <=1.005 1.016-1.022 Urine Protein NEGATIVE NEGATIVE Urine Glucose (UA) NEGATIVE NEGATIVE Urine Ketones NEGATIVE NEGATIVE Urine Nitrite NEGATIVE NEGATIVE Urine Bilirubin NEGATIVE NEGATIVE Urine Urobilinogen 0.2 < = 1.0 MG/DL Urine Leukocyte Esterase TRACE H NEGATIVE Urine RBC (Auto) NEGATIVE NEGATIVE Urine RBC RARE /HPF Urine WBC 0-2 /HPF Urine Squamous Epithelial Cells 2-5 /HPF Urine Crystals NONE /LPF Urine Bacteria FEW H /HPF Urine Casts NONE /LPF Urine Mucus NEGATIVE /LPF Urine Culture Indicated YES Glucometer 106 70-110 MG/DL My Orders Orders - PEDRO PABLO ERVIN MD Ua Culture If Indicated (02/23/22 12:36) Accucheck Stat ONCE (02/23/22 12:36) Urine Culture (02/23/22 12:20) Vital Signs/I&O 02/23/22 02/23/22 12:14 13:30 Temp 36.2 36.9 Pulse 74 65 Resp 16 16 B/P (MAP) 143/84 (103) 148/78 Pulse Ox 98 O2 Delivery Room Air Capillary Refill : Blood Pressure Mean: 103 Progress Note : Time: 13:11 Progress Note Patient apparently let the nurse know that she feels better and would like to go home. Exam is reassuring - no abnormal physical exam/neurological findings. UA shows trace LE and bacteria. She is asymptomatic of UTI. VSS. BP normal. Will send her home with return precautions. No clinical or objexcive findings concerning for TIA/CVA, infection, or other acute pathology. Her urine will culture. Departure Impression Primary Impression: Incontinence of urine in female Additional Impression: Occasional tremors Disposition: 01 HOME, SELF-CARE Condition: Stable Departure-Patient Inst. Decision time for Depature: 13:13 Referrals: ARTIE GARCIA MD (PCP/Family) Primary Care Physician Patient Instructions: Urinary Incontinence (DC) Add. Discharge Instructions: Please call for follow-up appointment with your primary care physician or keep any scheduled appointments that you may already have. If you develop any burning with urination please follow-up with your doctor or come back to the emergency department for reevaluation. Continue all of your current daily medications. Copy Copies To 1: ARTIE GARCIA MD, KATHRYN M MD Feb 23, 2022 12:37
[2022-02-23 12:43] LABS: BILIRUBIN,URINE NEGATIVE (NEGATIVE); CLARITY,URINE CLEAR; COLOR,URINE YELLOW; GLUCOSE, URINE (UA) NEGATIVE (NEGATIVE); KETONES,URINE NEGATIVE (NEGATIVE); LEUKOCYTE ESTERASE ,URINE TRACE (NEGATIVE); NITRITE,URINE NEGATIVE (NEGATIVE); PROTEIN,URINE NEGATIVE (NEGATIVE)
[2022-02-23 12:53] LABS: RBC,URINE RARE /HPF
[2022-02-23 12:54] LABS: BACTERIA,URINE FEW /HPF; WBC,URINE 0-2 /HPF
[2022-02-23 13:30] VITALS: BP 148/78
== END 2022-02-23 13:34 | disposition home or self-care (01) ==
LOC: EDUNIT# 12:07 → ER 12:10
DX: R32 Unspecified urinary incontinence (principal); R25.1 Tremor, unspecified; Z28.310 Unvaccinated for COVID-19
CPT/HCPCS: 81000; 82947; 87088

== ENCOUNTER 2022-07-08 11:20 | Emergency (ER) | payer MEDICARE, MEDICAID ==
[2022-07-08 11:58] LABS: BASOPHILS # (AUTO) 0.1 10^3/uL (0.0-0.1); BASOPHILS % (AUTO) 1 % (0-10); EOSINOPHILS # (AUTO) 0.2 10^3/uL (0.0-0.3); EOSINOPHILS % (AUTO) 3 % (0-10); HEMATOCRIT 40 % (35-52); HEMOGLOBIN 13.4 g/dL (11.5-16.0); LYMPHOCYTES # (AUTO) 1.5 10^3/uL (1.0-4.0); LYMPHOCYTES % (AUTO) 20 % (12-44); MEAN CORPUSCULAR HEMOGLOBIN 29 pg (25-34); MEAN CORPUSCULAR HGB CONC 34 g/dL (32-36); MEAN CORPUSCULAR VOLUME 86 fL (80-99); MEAN PLATELET VOLUME 10.5 fL (9.0-12.2); MONOCYTES # (AUTO) 0.6 10^3/uL (0.0-1.0); MONOCYTES % (AUTO) 7 % (0-12); NEUTROPHILS # (AUTO) 5.4 10^3/uL (1.8-7.8); NEUTROPHILS % (AUTO) 69 % (42-75); PLATELET COUNT 203 10^3/uL (130-400); WHITE BLOOD COUNT 7.7 10^3/uL (4.3-11.0)
[2022-07-08 12:00] LABS: ALBUMIN 3.7 GM/DL (3.2-4.5)
[2022-07-08] MEDS ORDERED: LACTATED RINGERS 1,000 ML IV ONE (12:00)
[2022-07-08 12:01] LABS: POTASSIUM 4.4 MMOL/L (3.6-5.0)
[2022-07-08 12:02] LABS: CALCIUM 9.4 MG/DL (8.5-10.1)
[2022-07-08 12:03] LABS: TOTAL PROTEIN 7.1 GM/DL (6.4-8.2)
[2022-07-08 12:05] LABS: BILIRUBIN,TOTAL 0.7 MG/DL (0.1-1.0)
[2022-07-08 12:07] LABS: CREATININE SERUM 1.32 MG/DL (0.60-1.30)
[2022-07-08 12:13] LABS: BILIRUBIN,URINE NEGATIVE (NEGATIVE); CLARITY,URINE CLEAR; COLOR,URINE YELLOW; GLUCOSE, URINE (UA) NEGATIVE (NEGATIVE); KETONES,URINE NEGATIVE (NEGATIVE); LEUKOCYTE ESTERASE ,URINE NEGATIVE (NEGATIVE); NITRITE,URINE NEGATIVE (NEGATIVE); PROTEIN,URINE NEGATIVE (NEGATIVE)
[2022-07-08 12:33] LABS: BACTERIA,URINE TRACE /HPF
[2022-07-08 12:34] LABS: AMORPHOUS SEDIMENT,UR RARE AMOR URATES /LPF; SQUAMOUS EPITHELIAL CELL,UR RARE /HPF
--- NOTE | 2022-07-08 12:34 | Diagnostic Imaging Report ---
INDICATION: Weakness Single AP view of chest is obtained with comparison made to study of 10/14/2021. There is mild cardiomegaly and pulmonary venous congestion. Prominent interstitial markings are seen throughout the lungs with no pneumothorax, consolidation or significant pleural fluid. IMPRESSION: Probable interstitial edema and/or pneumonitis developed since previous study without evidence of consolidation or other acute abnormality in the chest. Dictated by: Dictated on workstation # [id number]
--- NOTE | 2022-07-08 12:42 | ED General ---
General Chief Complaint: General Problems/Pain Stated Complaint: DEHYDRATED Nursing Triage Note: PT TO RM 4 BY [facility] FROM [facility] WITH C/O FEELING DEHYDRATED AND SLIGHTLY SOB. PT STATES SHE JUST WANTS WATER. ASKED WHY SHE THINKS SHES DEHYDRATED AND SHE STATES THAT HER MOUTH IS DRY AND IT STARTED FIRST THING THIS MORNING Allergies and Home Medications Allergies Coded Allergies: Cephalexin Monohydrate (Verified Allergy, Mild, 10/15/11) Methylene Blue (Verified Allergy, Mild, 10/15/11) Nitrofurantoin Macrocrystal (Verified Allergy, Mild, 10/15/11) Spectinomycin HCl (Verified Allergy, Mild, 10/15/11) amiloride HCl (Verified Allergy, Mild, 10/15/11) amoxicillin trihydrate (Verified Allergy, Mild, 10/15/11) ampicillin (Verified Allergy, Mild, 10/15/11) atropine (Verified Allergy, Mild, 10/15/11) atropine sulfate (Verified Allergy, Mild, 10/15/11) benzoic acid (Verified Allergy, Mild, 10/15/11) betamethasone dipropionate (Verified Allergy, Mild, 10/15/11) diazepam (Verified Allergy, Mild, 10/15/11) erythromycin base (Verified Allergy, Mild, 10/15/11) hydrochlorothiazide (Verified Allergy, Mild, 10/15/11) hyoscyamine (Verified Allergy, Mild, 10/15/11) hyoscyamine sulfate (Verified Allergy, Mild, 10/15/11) levofloxacin (Verified Allergy, Mild, 10/15/11) methenamine (Verified Allergy, Mild, 10/15/11) phenyl salicylate (Verified Allergy, Mild, 10/15/11) potassium clavulanate (Verified Allergy, Mild, 10/15/11) propylene glycol (Verified Allergy, Mild, 10/15/11) salicylates (Verified Allergy, Mild, 10/15/11) spectinomycin (Verified Allergy, Mild, 10/15/11) tetracycline (Verified Allergy, Mild, 10/15/11) caffeine (Unverified Allergy, Unknown, 04/26/10) Uncoded Allergies: CYCLSCAT VAG CREAM (Allergy, Mild, 10/15/11) FURAKIN (Allergy, Mild, 10/15/11) MYCSTATIX (Allergy, Mild, 10/15/11) ORTHO-DIENSATROL (Allergy, Mild, 10/15/11) PROBICIN (Allergy, Mild, 10/15/11) PTOSTSTAT (Allergy, Mild, 10/15/11) TETRAKIN (Allergy, Mild, 10/15/11) VELOSEX (Allergy, Mild, 10/15/11) CHOCOLATE (Allergy, Unknown, 04/26/10) INK (Allergy, Unknown, 04/26/10) PENICILLIN (Allergy, Unknown, 04/26/10) SULFA (Allergy, Unknown, 04/26/10) Patient Home Medication List Albuterol Sulfate (Ventolin Hfa) 1 Puff Puff, 2 PUFF IH Q8H PRN for SHORTNESS OF BREATH, (Reported) Entered as Reported by: JON WELSH on 10/15/21 1114 Aspirin (Children's Aspirin) 81 Mg Tab.chew, 81 MG PO DAILY Prescribed by: USAMA GILBERT on 10/15/21 1136 Diphenhydramine HCl (Benadryl Allergy) 25 Mg Tablet, 12.5 MG PO Q8H PRN for ALLERGIES, (Reported) Entered as Reported by: JON WELSH on 10/15/21 1116 Hydrocortisone (Hydrocortisone) 1 % Cream..g., 1 APPLIC RC Q12H PRN for HEMMORRHOID DISCOMFORT, (Reported) Entered as Reported by: JON WELSH on 10/15/21 1115 Ibuprofen (Ibuprofen) 200 Mg Tablet, 200 MG PO Q8H PRN for PAIN-MILD (1-4), (Reported) Entered as Reported by: JON WELSH on 10/15/21 111 Levothyroxine Sodium (Levothyroxine) 25 Mcg Capsule, 25 MCG PO DAILY, (Reported) Entered as Reported by: JON WELSH on 10/15/21 111 Lorazepam (Ativan) 0.5 Mg Tablet, 0.5 MG PO Q12H PRN for ANXIETY, (Reported) Entered as Reported by: JON WELSH on 10/15/21 111 Menthol/Lanolin/Calamine/Znox (Calmoseptine Ointment) 0.44 %-20.6 % Oint, 1 APPLIC TP DAILY PRN for GAULDING, (Reported) Entered as Reported by: JON WELSH on 10/15/21 1119 Nystatin (Nystatin) 100,000 Unit/Gram Cream..g., 1 APPLIC TP BID PRN for RASH, (Reported) Entered as Reported by: JON WELSH on 10/15/21 1120 Omeprazole (Omeprazole) 40 Mg Capsule.dr, 40 MG PO DAILY, (Reported) Entered as Reported by: JON WELSH on 10/15/21 1121 Simethicone (Gas-X) 125 Mg Capsule, 125 MG PO Q6H PRN for GAS, (Reported) Entered as Reported by: JON WELSH on 10/15/21 1113 Past Klcrvfl-Pwbimc-Lbhogf Hx Patient Social History Tobacco Use?: No Use of E-Cig and/or Vaping dev: No Substance use?: No Alcohol Use?: No Immunizations Up To Date Influenza Vaccine Up-to-Date: No; Not Current Past Medical History Surgery/Hospitalization HX: PMH;HTN, dementia, ibs, anxiety SURGERY;GALLBLADDER, APPENDIX, HERNIA REPAIRS, BILATERAL MASTECTOMY, HYST., TONSILECTOMY. Sleep Apnea Hypothyroidsim Anxiety Physical Exam Vital Signs Vital Signs - First Documented 07/08/22 11:21 Temp 36.2 Pulse 74 Resp 14 B/P (MAP) 184/82 (116) Capillary Refill : Height, Weight, BMI Height: 5'1.00" Weight: 190lbs. oz. 86.804676ww; 35.00 BMI Method:Stated Progress/Results/Core Measures Suspected Sepsis SIRS Temperature: Pulse: 74 Respiratory Rate: 14 Laboratory Tests 07/08/22 11:35: White Blood Count 7.7 Blood Pressure 184 /82 Mean: 116 Laboratory Tests 07/08/22 11:35: Creatinine 1.32H, Platelet Count 203, Total Bilirubin 0.7 Results/Orders Lab Results Laboratory Tests Test 07/08/22 11:35 07/08/22 12:02 Range/Units White Blood Count 7.7 4.3-11.0 10^3/uL Red Blood Count 4.62 3.80-5.11 10^6/uL Hemoglobin 13.4 11.5-16.0 g/dL Hematocrit 40 35-52 % Mean Corpuscular Volume 86 80-99 fL Mean Corpuscular Hemoglobin 29 25-34 pg Mean Corpuscular Hemoglobin Concent 34 32-36 g/dL Red Cell Distribution Width 13.9 10.0-14.5 % Platelet Count 203 130-400 10^3/uL Mean Platelet Volume 10.5 9.0-12.2 fL Immature Granulocyte % (Auto) 0 % Neutrophils (%) (Auto) 69 42-75 % Lymphocytes (%) (Auto) 20 12-44 % Monocytes (%) (Auto) 7 0-12 % Eosinophils (%) (Auto) 3 0-10 % Basophils (%) (Auto) 1 0-10 % Neutrophils # (Auto) 5.4 1.8-7.8 10^3/uL Lymphocytes # (Auto) 1.5 1.0-4.0 10^3/uL Monocytes # (Auto) 0.6 0.0-1.0 10^3/uL Eosinophils # (Auto) 0.2 0.0-0.3 10^3/uL Basophils # (Auto) 0.1 0.0-0.1 10^3/uL Immature Granulocyte # (Auto) 0.0 0.0-0.1 10^3/uL Sodium Level 139 135-145 MMOL/L Potassium Level 4.4 3.6-5.0 MMOL/L Chloride Level 106 98-107 MMOL/L Carbon Dioxide Level 22 21-32 MMOL/L Anion Gap 11 5-14 MMOL/L Blood Urea Nitrogen 12 7-18 MG/DL Creatinine 1.32 H 0.60-1.30 MG/DL Estimat Glomerular Filtration Rate 41 BUN/Creatinine Ratio 9 Glucose Level 101 70-105 MG/DL Calcium Level 9.4 8.5-10.1 MG/DL Corrected Calcium 9.6 8.5-10.1 MG/DL Magnesium Level 2.0 1.6-2.4 MG/DL Total Bilirubin 0.7 0.1-1.0 MG/DL Aspartate Amino Transf (AST/SGOT) 18 5-34 U/L Alanine Aminotransferase (ALT/SGPT) 13 0-55 U/L Alkaline Phosphatase 73 40-136 U/L B-Type Natriuretic Peptide 118.1 H <100.0 PG/ML Total Protein 7.1 6.4-8.2 GM/DL Albumin 3.7 3.2-4.5 GM/DL Urine Color YELLOW Urine Clarity CLEAR Urine pH 6.0 5-9 Urine Specific [place] <=1.005 1.016-1.022 Urine Protein NEGATIVE NEGATIVE Urine Glucose (UA) NEGATIVE NEGATIVE Urine Ketones NEGATIVE NEGATIVE Urine Nitrite NEGATIVE NEGATIVE Urine Bilirubin NEGATIVE NEGATIVE Urine Urobilinogen 0.2 < = 1.0 MG/DL Urine Leukocyte Esterase NEGATIVE NEGATIVE Urine RBC (Auto) NEGATIVE NEGATIVE Urine RBC NONE /HPF Urine WBC NONE /HPF Urine Squamous Epithelial Cells RARE /HPF Urine Crystals PRESENT H /LPF Urine Amorphous Sediment RARE DEUCE URATES H /LPF Urine Bacteria TRACE /HPF Urine Casts NONE /LPF Urine Mucus NEGATIVE /LPF Urine Culture Indicated NO My Orders Orders - ARTIE TELLEZ DO Ed Iv/Invasive Line Start (07/08/22 11:52) Monitor-Rhythm Ecg Trace Only (07/08/22 11:52) Chest 1 View, Ap/Pa Only (07/08/22 11:52) Cbc With Automated Diff (07/08/22 11:52) Comprehensive Metabolic Panel (07/08/22 11:52) Magnesium (07/08/22 11:52) Ua Culture If Indicated (07/08/22 11:52) Ed Iv/Invasive Line Start (07/08/22 11:52) Lactated Ringers (Lr 1000 Ml Iv Solution (07/08/22 12:00) Bnp Adan (07/08/22 12:51) Ondansetron Injection (Zofran Injectio (07/08/22 13:15) Medications Given in ED Current Medications Medications Dose Ordered Sig/Heidi Route Start Time Stop Time Status Last Admin Dose Admin Lactated Ringer's 1,000 ml @ 0 mls/hr Q0M ONCE IV 07/08/22 12:00 07/08/22 12:01 DC 07/08/22 12:12 1,000 MLS/HR Ondansetron HCl 4 mg ONCE ONCE IVP 07/08/22 13:15 07/08/22 13:16 DC 07/08/22 13:18 4 MG Vital Signs/I&O 07/08/22 11:21 Temp 36.2 Pulse 74 Resp 14 B/P (MAP) 184/82 (116) Capillary Refill : Blood Pressure Mean: 116 Progress Note : Progress Note NO COMPLAINTS DURING ER STAY VITALS STABLE PT WITH EXTENSIVE LIST OF ALLERGIES. Diagnostic Imaging Comments CXR--PER RADIOLOGIST REPORT AT 1241 Single AP view of chest is obtained with comparison made to study of 10/14/2021. There is mild cardiomegaly and pulmonary venous congestion. Prominent interstitial markings are seen throughout the lungs with no pneumothorax, consolidation or significant pleural fluid. IMPRESSION: Probable interstitial edema and/or pneumonitis developed since previous study without evidence of consolidation or other acute abnormality in the chest. Reviewed: Reviewed by Me Departure Impression Primary Impression: Interstitial pneumonitis Additional Impressions: Chronic renal insufficiency Dementia Disposition: [facility] Condition: Stable Departure-Patient Inst. Decision time for Depature: 13:20 Referrals: ARTIE GARCIA MD (PCP/Family) Primary Care Physician Patient Instructions: Interstitial Lung Disease Add. Discharge Instructions: CONTINUE ALL YOUR REGULAR MEDICATIONS FOLLOW UP WITH DR. GARCIA FOR FURTHER CARE All discharge instructions reviewed with patient and/or family. Voiced understanding. ARTIE TELLEZ DO Jul 08, 2022 12:42
[2022-07-08] MEDS ORDERED: ONDANSETRON 4 MG/2 ML (SDV) Z0FRAN IVP ONE (13:15)
[2022-07-08 13:32] VITALS: BP 181/78
== END 2022-07-08 13:32 ==
LOC: EDUNIT# 11:31 → ER 11:32
DX: J84.89 Other specified interstitial pulmonary diseases (principal); F03.90 Unspecified dementia, unspecified severity, without behavioral disturbance, psychotic disturbance, mood disturbance, and anxiety; I12.9 Hypertensive chronic kidney disease with stage 1 through stage 4 chronic kidney disease, or unspecified chronic kidney disease; N18.9 Chronic kidney disease, unspecified
CPT/HCPCS: 36415; 71045; 80053; 81000; 83735; 83880; 85025; 93041

== ENCOUNTER 2022-09-04 12:50 | Emergency (ER) | payer MEDICARE, MEDICAID ==
[~2022-09-04] VITALS: Ht 157 cm; Wt 80.0 kg
--- NOTE | 2022-09-04 13:11 | ED General ---
General Chief Complaint: General Problems/Pain Stated Complaint: HEADACHE Source of Information: EMS Exam Limitations: Other (dementia) History of Present Illness Date Seen by Provider: September 04, 2022 Time Seen by Provider: 12:58 Initial Comments 81-year-old female severe dementia presents from nursing facility for reported weakness. On arrival she states she has some difficulty swallowing some time. This is her only complaint. She has had this issue for several years. She does seem pleasantly confused. She denies any fevers chills abdominal pain, changes in bowel or bladder habits. All other systems reviewed and negative except documented per HPI. Voice recognition software was used to help create this chart Allergies and Home Medications Allergies Coded Allergies: Cephalexin Monohydrate (Verified Allergy, Mild, 10/15/11) Methylene Blue (Verified Allergy, Mild, 10/15/11) Nitrofurantoin Macrocrystal (Verified Allergy, Mild, 10/15/11) Spectinomycin HCl (Verified Allergy, Mild, 10/15/11) amiloride HCl (Verified Allergy, Mild, 10/15/11) amoxicillin trihydrate (Verified Allergy, Mild, 10/15/11) ampicillin (Verified Allergy, Mild, 10/15/11) atropine (Verified Allergy, Mild, 10/15/11) atropine sulfate (Verified Allergy, Mild, 10/15/11) benzoic acid (Verified Allergy, Mild, 10/15/11) betamethasone dipropionate (Verified Allergy, Mild, 10/15/11) diazepam (Verified Allergy, Mild, 10/15/11) erythromycin base (Verified Allergy, Mild, 10/15/11) hydrochlorothiazide (Verified Allergy, Mild, 10/15/11) hyoscyamine (Verified Allergy, Mild, 10/15/11) hyoscyamine sulfate (Verified Allergy, Mild, 10/15/11) levofloxacin (Verified Allergy, Mild, 10/15/11) methenamine (Verified Allergy, Mild, 10/15/11) phenyl salicylate (Verified Allergy, Mild, 10/15/11) potassium clavulanate (Verified Allergy, Mild, 10/15/11) propylene glycol (Verified Allergy, Mild, 10/15/11) salicylates (Verified Allergy, Mild, 10/15/11) spectinomycin (Verified Allergy, Mild, 10/15/11) tetracycline (Verified Allergy, Mild, 10/15/11) caffeine (Unverified Allergy, Unknown, 04/26/10) Uncoded Allergies: CYCLSCAT VAG CREAM (Allergy, Mild, 10/15/11) FURAKIN (Allergy, Mild, 10/15/11) MYCSTATIX (Allergy, Mild, 10/15/11) ORTHO-DIENSATROL (Allergy, Mild, 10/15/11) PROBICIN (Allergy, Mild, 10/15/11) PTOSTSTAT (Allergy, Mild, 10/15/11) TETRAKIN (Allergy, Mild, 10/15/11) VELOSEX (Allergy, Mild, 10/15/11) CHOCOLATE (Allergy, Unknown, 04/26/10) INK (Allergy, Unknown, 04/26/10) PENICILLIN (Allergy, Unknown, 04/26/10) SULFA (Allergy, Unknown, 04/26/10) Patient Home Medication List Home Medication List Reviewed: Yes Albuterol Sulfate (Ventolin Hfa) 1 Puff Puff, 2 PUFF IH Q8H PRN for SHORTNESS OF BREATH, (Reported) Entered as Reported by: JON WELSH on 10/15/21 1114 Aspirin (Children's Aspirin) 81 Mg Tab.chew, 81 MG PO DAILY Prescribed by: USAMA GILBERT on 10/15/21 1136 Diphenhydramine HCl (Benadryl Allergy) 25 Mg Tablet, 12.5 MG PO Q8H PRN for ALLERGIES, (Reported) Entered as Reported by: JON WELSH on 10/15/21 1116 Hydrocortisone (Hydrocortisone) 1 % Cream..g., 1 APPLIC RC Q12H PRN for HEMMORRHOID DISCOMFORT, (Reported) Entered as Reported by: JON WELSH on 10/15/21 1115 Ibuprofen (Ibuprofen) 200 Mg Tablet, 200 MG PO Q8H PRN for PAIN-MILD (1-4), (Reported) Entered as Reported by: JON WELSH on 10/15/21 111 Levothyroxine Sodium (Levothyroxine) 25 Mcg Capsule, 25 MCG PO DAILY, (Reported) Entered as Reported by: JON WELSH on 10/15/21 111 Lorazepam (Ativan) 0.5 Mg Tablet, 0.5 MG PO Q12H PRN for ANXIETY, (Reported) Entered as Reported by: JON WELSH on 10/15/21 1117 Menthol/Lanolin/Calamine/Znox (Calmoseptine Ointment) 0.44 %-20.6 % Oint, 1 APPLIC TP DAILY PRN for GAULDING, (Reported) Entered as Reported by: JON WELSH on 10/15/21 1119 Nystatin (Nystatin) 100,000 Unit/Gram Cream..g., 1 APPLIC TP BID PRN for RASH, (Reported) Entered as Reported by: JON WELSH on 10/15/21 1120 Omeprazole (Omeprazole) 40 Mg Capsule.dr, 40 MG PO DAILY, (Reported) Entered as Reported by: JON WELSH on 10/15/21 1121 Simethicone (Gas-X) 125 Mg Capsule, 125 MG PO Q6H PRN for GAS, (Reported) Entered as Reported by: JON WELSH on 10/15/21 1113 Review of Systems Review of Systems Constitutional: see HPI Past Hnmuoga-Edvhdr-Whebii Hx Past Medical History Surgery/Hospitalization HX: PMH;HTN, dementia, ibs, anxiety SURGERY;GALLBLADDER, APPENDIX, HERNIA REPAIRS, BILATERAL MASTECTOMY, HYST., TONSILECTOMY. Surgeries: Yes Abdominal, Appendectomy, Breast, Gallbladder, Hysterectomy, Oophorectomy, Tonsillectomy Respiratory: Yes Sleep Apnea Cardiac: Yes Hypertension Neurological: Yes Dementia Reproductive Disorders: Yes Female Reproductive Disorders: Menstrual Problems [employer]CH[employer] History: Hysterectomy, Menopausal Genitourinary: Yes (CHRONIC RENAL INSUFFICIENCY) Gastrointestinal: Yes Abdominal Hernia, Gastroesophageal Reflux, Chronic Diarrhea, Irritable Bowel Musculoskeletal: No Endocrine: Yes Hypothyroidsim HEENT: No Cancer: Yes Breast Did You Recieve Any Treatments: Yes What Type of Treatment Did You: Surgical Intervention Psychosocial: Yes (DEMENTIA WITH DELUSIONS) Anxiety Blood Disorders: Yes (IRON DEFICIENCY ANEMIA) Physical Exam Vital Signs Vital Signs - First Documented 09/04/22 13:00 Temp 36.7 Pulse 91 Resp 16 B/P (MAP) 111/69 (83) Pulse Ox 96 Capillary Refill : Height, Weight, BMI Height: 5'1.00" Weight: 190lbs. oz. 86.522700xu; 35.00 BMI Method:Stated General Appearance: No Apparent Distress, WD/WN HEENT: PERRL/EOMI, Normal ENT Inspection, Pharynx Normal Neck: Normal Inspection, Supple Respiratory: Chest Non Tender, Lungs Clear, Normal Breath Sounds, No Accessory Muscle Use, No Respiratory Distress Cardiovascular: Regular Rate, Rhythm, No Murmur, Normal Peripheral Pulses Gastrointestinal: Normal Bowel Sounds, No Organomegaly, No Pulsatile Mass, Non Tender, Soft Extremity: Normal Capillary Refill, Normal Inspection, Normal Range of Motion, Non Tender, No Calf Tenderness Neurologic/Psychiatric: Alert, No Motor/Sensory Deficits, Other (alert to person and place) Skin: Normal Color, Warm/Dry Progress/Results/Core Measures Suspected Sepsis SIRS Temperature: Pulse: Respiratory Rate: Laboratory Tests 09/04/22 13:50: White Blood Count 15.9H Blood Pressure / Mean: Laboratory Tests 09/04/22 13:50: Creatinine 1.27, Platelet Count 182, Total Bilirubin 1.8H Results/Orders Lab Results Laboratory Tests Test 09/04/22 13:50 09/04/22 14:18 Range/Units White Blood Count 15.9 H 4.3-11.0 10^3/uL Red Blood Count 4.41 3.80-5.11 10^6/uL Hemoglobin 13.2 11.5-16.0 g/dL Hematocrit 39 35-52 % Mean Corpuscular Volume 87 80-99 fL Mean Corpuscular Hemoglobin 30 25-34 pg Mean Corpuscular Hemoglobin Concent 34 32-36 g/dL Red Cell Distribution Width 13.7 10.0-14.5 % Platelet Count 182 130-400 10^3/uL Mean Platelet Volume 11.1 9.0-12.2 fL Immature Granulocyte % (Auto) 0 % Neutrophils (%) (Auto) 81 H 42-75 % Lymphocytes (%) (Auto) 10 L 12-44 % Monocytes (%) (Auto) 7 0-12 % Eosinophils (%) (Auto) 0 0-10 % Basophils (%) (Auto) 0 0-10 % Neutrophils # (Auto) 12.9 H 1.8-7.8 10^3/uL Lymphocytes # (Auto) 1.6 1.0-4.0 10^3/uL Monocytes # (Auto) 1.2 H 0.0-1.0 10^3/uL Eosinophils # (Auto) 0.1 0.0-0.3 10^3/uL Basophils # (Auto) 0.1 0.0-0.1 10^3/uL Immature Granulocyte # (Auto) 0.1 0.0-0.1 10^3/uL Neutrophils % (Manual) 85 % Lymphocytes % (Manual) 8 % Monocytes % (Manual) 7 % Blood Morphology Comment NORMAL Sodium Level 134 L 135-145 MMOL/L Potassium Level 4.2 3.6-5.0 MMOL/L Chloride Level 100 98-107 MMOL/L Carbon Dioxide Level 25 21-32 MMOL/L Anion Gap 9 5-14 MMOL/L Blood Urea Nitrogen 22 H 7-18 MG/DL Creatinine 1.27 0.60-1.30 MG/DL Estimat Glomerular Filtration Rate 42 BUN/Creatinine Ratio 17 Glucose Level 112 H 70-105 MG/DL Calcium Level 9.6 8.5-10.1 MG/DL Corrected Calcium 10.2 H 8.5-10.1 MG/DL Total Bilirubin 1.8 H 0.1-1.0 MG/DL Aspartate Amino Transf (AST/SGOT) 44 H 5-34 U/L Alanine Aminotransferase (ALT/SGPT) 31 0-55 U/L Alkaline Phosphatase 66 40-136 U/L Total Protein 6.7 6.4-8.2 GM/DL Albumin 3.3 3.2-4.5 GM/DL Urine Color YELLOW Urine Clarity CLEAR Urine pH 6.0 5-9 Urine Specific [place] <=1.005 1.016-1.022 Urine Protein NEGATIVE NEGATIVE Urine Glucose (UA) NEGATIVE NEGATIVE Urine Ketones NEGATIVE NEGATIVE Urine Nitrite NEGATIVE NEGATIVE Urine Bilirubin NEGATIVE NEGATIVE Urine Urobilinogen 0.2 < = 1.0 MG/DL Urine Leukocyte Esterase 2+ H NEGATIVE Urine RBC (Auto) NEGATIVE NEGATIVE Urine RBC RARE /HPF Urine WBC 10-25 H /HPF Urine Squamous Epithelial Cells 5-10 /HPF Urine Renal Epithelial Cells 0-2 /HPF Urine Crystals NONE /LPF Urine Bacteria FEW H /HPF Urine Casts NONE /LPF Urine Mucus NEGATIVE /LPF Urine Culture Indicated YES My Orders Orders - ODESSA MORENO DO Comprehensive Metabolic Panel (09/04/22 13:05) Urinalysis (09/04/22 13:05) Cbc With Automated Diff (09/04/22 13:05) Manual Differential (09/04/22 13:50) Urine Culture (09/04/22 14:18) Vital Signs/I&O 09/04/22 13:00 Temp 36.7 Pulse 91 Resp 16 B/P (MAP) 111/69 (83) Pulse Ox 96 Capillary Refill : Departure Communication (Admissions) Patient is hemodynamically stable. She is alert and oriented to person and place. Not oriented to time which I told is likely her baseline. She has a slight UTI. Given p.o. Keflex here and discharged with the same. No evidence for septic infection. Impression Primary Impression: UTI (urinary tract infection) Qualified Codes: N30.00 - Acute cystitis without hematuria Disposition: HOME, SELF-CARE Condition: Stable Departure-Patient Inst. Referrals: ARTIE GARCIA MD (PCP/Family) Primary Care Physician Patient Instructions: Urinary Tract Infection, Adult (DC) Add. Discharge Instructions: Antibiotics as prescribed until they are gone. Follow-up with primary doctor for any nonemergent needs. Return to the emergency department for any severe concerns for All discharge instructions reviewed with patient and/or family. Voiced understanding. Scripts Cephalexin (Cephalexin) 500 Mg Tablet 500 MG PO BID for 5 Days, #10 TAB Prov: ODESSA MORENO DO 09/04/22 ODESSA MORENO DO September 04, 2022 13:11
[2022-09-04 13:57] LABS: BASOPHILS # (AUTO) 0.1 10^3/uL (0.0-0.1); BASOPHILS % (AUTO) 0 % (0-10); EOSINOPHILS # (AUTO) 0.1 10^3/uL (0.0-0.3); EOSINOPHILS % (AUTO) 0 % (0-10); HEMATOCRIT 39 % (35-52); HEMOGLOBIN 13.2 g/dL (11.5-16.0); LYMPHOCYTES # (AUTO) 1.6 10^3/uL (1.0-4.0); LYMPHOCYTES % (AUTO) 10 % (12-44); MEAN CORPUSCULAR HEMOGLOBIN 30 pg (25-34); MEAN CORPUSCULAR HGB CONC 34 g/dL (32-36); MEAN CORPUSCULAR VOLUME 87 fL (80-99); MEAN PLATELET VOLUME 11.1 fL (9.0-12.2); MONOCYTES # (AUTO) 1.2 10^3/uL (0.0-1.0); MONOCYTES % (AUTO) 7 % (0-12); NEUTROPHILS # (AUTO) 12.9 10^3/uL (1.8-7.8); NEUTROPHILS % (AUTO) 81 % (42-75); PLATELET COUNT 182 10^3/uL (130-400); WHITE BLOOD COUNT 15.9 10^3/uL (4.3-11.0)
[2022-09-04 14:06] LABS: ALBUMIN 3.3 GM/DL (3.2-4.5)
[2022-09-04 14:07] LABS: POTASSIUM 4.2 MMOL/L (3.6-5.0)
[2022-09-04 14:08] LABS: CALCIUM 9.6 MG/DL (8.5-10.1)
[2022-09-04 14:09] LABS: TOTAL PROTEIN 6.7 GM/DL (6.4-8.2)
[2022-09-04 14:11] LABS: BILIRUBIN,TOTAL 1.8 MG/DL (0.1-1.0)
[2022-09-04 14:13] LABS: CREATININE SERUM 1.27 MG/DL (0.60-1.30)
[2022-09-04 14:18] LABS: LYMPHOCYTES % (MANUAL) 8 %; MONOCYTES % (MANUAL) 7 %; NEUTROPHILS % (MANUAL) 85 %; RBC MORPH NORMAL
[2022-09-04 14:26] LABS: BILIRUBIN,URINE NEGATIVE (NEGATIVE); CLARITY,URINE CLEAR; COLOR,URINE YELLOW; GLUCOSE, URINE (UA) NEGATIVE (NEGATIVE); KETONES,URINE NEGATIVE (NEGATIVE); LEUKOCYTE ESTERASE ,URINE 2+ (NEGATIVE); NITRITE,URINE NEGATIVE (NEGATIVE); PROTEIN,URINE NEGATIVE (NEGATIVE)
[2022-09-04 14:36] LABS: BACTERIA,URINE FEW /HPF; RBC,URINE RARE /HPF; RENAL EPITHELIAL CELLS,URINE 0-2 /HPF
[2022-09-04] MEDS ORDERED: CEPHALEXIN 250 MG (KEFLEX) CAP PO STA (14:42)
[2022-09-04] MEDS ORDERED: CEPH500T PO ×2 (14:43→15:08)
[2022-09-04 15:08] VITALS: BP 131/59
== END 2022-09-04 15:14 | disposition home or self-care (01) ==
LOC: EDUNIT# 12:56 → ER 12:57
DX: N39.0 Urinary tract infection, site not specified (principal); Z88.0 Allergy status to penicillin; Z88.1 Allergy status to other antibiotic agents; Z88.2 Allergy status to sulfonamides
CPT/HCPCS: 36415; 80053; 81000; 85007; 85027; 87088; 99283